=== PATIENT | female | born 1950 | race Two or more races ===

== ENCOUNTER 2024-11-01 08:07 | Inpatient (IN) | payer OTHER ==
[~2024-11-01] VITALS: Ht 152.4 cm; Wt 81.6 kg
[2024-11-01] VITALS (7 sets, daily range): BP systolic 168–229; BP diastolic 83–94; O2SAT 95–99
[2024-11-01] MEDS ORDERED: ELIQUIS5 MG PO (08:58)
[2024-11-01] MEDS ORDERED: JARDIANCE10 MG PO (08:59)
[2024-11-01] MEDS ORDERED: ACID REDUCER20 M1 PO (09:01)
[2024-11-01] MEDS ORDERED: ISOSORBIDE DINI30 MG PO (09:01)
[2024-11-01] MEDS ORDERED: HYDRALAZINE HCL50 MG PO (09:01)
[2024-11-01] MEDS ORDERED: LIPITOR40 M1 PO (09:02)
[2024-11-01] MEDS ORDERED: NORVASC10 MG PO (09:02)
[2024-11-01] MEDS ORDERED: PEPCID AC20 MG PO (09:03)
[2024-11-01] MEDS ORDERED: LOPRESSOR25 MG PO (09:04)
[2024-11-01] MEDS ORDERED: FUROsemide 20 MG/2 ML VIAL IV STA ×2 (09:32→15:43)
[2024-11-01] MEDS ORDERED: DILTIAZEM HCL 25 MG/5 ML VIAL IV ONE ×2 (09:42→09:45)
[2024-11-01] MEDS ORDERED: FUROsemide 20 MG/2 ML VIAL ONE ×2 (09:42→17:39)
[2024-11-01 09:56] LABS: HEMATOCRIT 37.5 % (36.0-45.00); HEMOGLOBIN 12.6 g/dL (12.0-15.00); MEAN CELL VOLUME 85.7 fL (80.00-100.00); MEAN CORPUSCULAR HEMOGLOBIN 28.8 pg (27.00-32.0); MEAN CORPUSCULAR HGB CONC 33.6 g/dl (32.0-36.0); PLATELET COUNT 319 K/uL (150-450); RED BLOOD COUNT 4.38 M/uL (4.00-6.00); RED CELL DISTRIBUTION WIDTH 15.3 % (11.5-14.5)
[2024-11-01 10:07] LABS: ABG PH 7.349 (7.35-7.45); ABG pCO2 38.2 mmHg (35-45); BASE EXCESS -4.5 mmol/l; BICARBONATE 20.6 mmol/l (23-25); SaO2 94.4 %; Tco2 21.8 mmol/l
[2024-11-01] MEDS ORDERED: LEVALBUTEROL HCL 1.25 MG/3 ML SOLUTION IH ONE (10:30)
[2024-11-01 10:43] LABS: o2 28 %
[2024-11-01 10:44] LABS: allen test SATISFACTORY; puncture site RADIAL RIGHT
[2024-11-01 10:58] LABS: URINE APPEARANCE Clear; URINE BILIRRUBIN Negative (NEGATIVE); URINE BLOOD Trace; URINE COLOR Yellow; URINE KETONE Negative (NEGATIVE); URINE LEUKOCYTE Negative; URINE NITRATE Negative; URINE UROBILINOGEN 0.2 E.U./dl
[2024-11-01 11:02] LABS: URINE EPITHELIAL CELLS 17.7 uL (0.0-38.8); URINE WBC 100.3 uL (0.0-23.2)
[2024-11-01] MEDS ORDERED: NITROGLYCERIN IN 5 % DEXTROSE 250 ML IV SCH (11:30)
[2024-11-01] MEDS ORDERED: KETOROLAC TROMETHAMINE 30 MG VIAL IV ONE (11:30)
[2024-11-01] MEDS ORDERED: NITROGLYCERIN IN 5 % DEXTROSE 50 MG/250 ML BOTTLE IV ONE (11:34)
[2024-11-01] MEDS ORDERED: KETOROLAC TROMETHAMINE 30 MG VIAL ONE (11:34)
[2024-11-01 11:38] LABS: URINE GLUCOSE 250 MG/DL (NEGATIVE); URINE PROTEIN >=1000 (NEGATIVE)
[2024-11-01 11:40] LABS: URINE EPITHELIAL CELLS 0-4 /HPF
[2024-11-01 12:06] LABS: ALBUMIN 2.6 gm/dL (3.4-5.0); BILIRUBIN TOTAL 0.64 mg/dL (0.3-1.2); BILIRUBIN,CONJUGATED 0.13 mg/dL (0.0-0.2); BILIRUBIN,UNCONJUGATED 0.51 mg/dL (0.0-0.6); CALCIUM 9.6 mg/dL (8.5-10.1); CREATININE SERUM 1.66 mg/dL (0.55-1.02); GFR 30.12; POTASSIUM 5.12 mEq/L (3.5-5.1)
[2024-11-01] MEDS ORDERED: ATORVASTATIN CALCIUM 40 MG TABLET PO SCH (19:35)
[2024-11-01] MEDS ORDERED: FAMOTIDINE/PF 20 MG in 0.9 % SODIUM CHLORIDE 8 ML IV PUSH SCH (19:37)
[2024-11-01] MEDS ORDERED: IPRATROPIUM BROMIDE 0.5 MG/2.5 ML AMPUL.NEB IH SCH (19:40)
[2024-11-01] MEDS ORDERED: AMIODARONE HCL 50 MG/ML AMPUL IV ONE (19:45)
[2024-11-01] MEDS ORDERED: INSULIN LISPRO 1,000 UNIT/10 ML UNITS SUBCUTANEO PRN (19:45)
[2024-11-01] MEDS ORDERED: DEXTROSE 50 % IN WATER 0.5 G/ML DISP.SYRIN IV PRN (19:45)
[2024-11-01] MEDS ORDERED: ASPIRIN 325 MG TABLET PO ONE (19:45)
[2024-11-01] MEDS ORDERED: TICAGRELOR 90 MG TABLET PO ONE ×3 (19:45→23:26)
[2024-11-01] MEDS ORDERED: MORPHINE SULFATE 2 MG/ML CARTRIDGE IV PRN (19:45)
[2024-11-01] MEDS ORDERED: ACETAMINOPHEN 500 MG GEL..CAP PO PRN (19:45)
[2024-11-01] MEDS ORDERED: ENOXAPARIN SODIUM 80 MG/0.8 ML SYRINGE SUBCUTANEO ONE (20:44)
[2024-11-01] MEDS ORDERED: AMIODARONE IN DEXTROSE,ISO-OSM 360 MG/200 ML IV.SOLN IV ONE (20:44)
[2024-11-01] MEDS ORDERED: FAMOTIDINE/PF 20 MG/2 ML VIAL ONE (20:44)
[2024-11-01] MEDS ORDERED: ENOXAPARIN SODIUM 80 MG/0.8 ML SYRINGE SUBCUTANEO SCH (21:00)
[2024-11-01] MEDS ORDERED: FUROsemide 20 MG/2 ML VIAL IV SCH (21:00)
[2024-11-01 22:31] LABS: PH,URINE 5.5 (5.0-8.0); URINE APPEARANCE Cloudy; URINE BILIRRUBIN Negative (NEGATIVE); URINE BLOOD Large; URINE COLOR Yellow; URINE KETONE Negative (NEGATIVE); URINE LEUKOCYTE Trace; URINE NITRATE Negative; URINE PROTEIN >=1000 (NEGATIVE); URINE UROBILINOGEN 0.2 E.U./dl
[2024-11-01 22:34] LABS: URINE BACTERIA 2980.4 uL (0.0-1933); URINE RBC 711.6 uL (0.0-20.8); URINE WBC 210.2 uL (0.0-23.2)
[2024-11-01] MEDS ORDERED: hydrALAZINE HCL 25 MG TABLET PO ONE (23:15)
[2024-11-01 23:51] LABS: URINE CAST > 21.83 uL (0.0-1.40); URINE GLUCOSE 250 MG/DL (NEGATIVE)
[2024-11-01 23:54] LABS: URINE YEAST NEGATIVE /hpf
[2024-11-02] VITALS (12 sets, daily range): BP systolic 137–226; BP diastolic 55–99; O2SAT 99–100
[2024-11-02] MEDS ORDERED: AMIODARONE IN DEXTROSE,ISO-OSM 360 MG/200 ML IV.SOLN IV ONE (03:46)
[2024-11-02] MEDS ORDERED: TICAGRELOR 90 MG TABLET PO SCH (05:00)
[2024-11-02] MEDS ORDERED: CLEVIDIPINE BUTYRATE 50 MG/100 ML VIAL IV SCH (08:15)
[2024-11-02] MEDS ORDERED: ACETAMINOPHEN 500 MG GEL..CAP PO ONE (08:19)
[2024-11-02] MEDS ORDERED: CLEVIDIPINE BUTYRATE 100 ML IV SCH (08:30)
[2024-11-02] MEDS ORDERED: ASPIRIN 81 MG TAB.CHEW PO SCH (09:00)
[2024-11-02] MEDS ORDERED: INSULIN LISPRO 1,000 UNIT/10 ML UNITS SUBCUTANEO ONE (09:44)
[2024-11-02] MEDS ORDERED: CHLORHEXIDINE GLUCONATE 120 ML BOTTLE TOP ONE (10:26)
[2024-11-02] MEDS ORDERED: TICAGRELOR 90 MG TABLET PO ONE (18:12)
[2024-11-02] MEDS ORDERED: METOPROLOL TARTRATE 25 MG TABLET PO SCH (22:11)
[2024-11-03] VITALS (20 sets, daily range): BP systolic 129–172; BP diastolic 60–99; O2SAT 95–100
[2024-11-03] MEDS ORDERED: IPRATROPIUM BROMIDE 0.5 MG/2.5 ML AMPUL.NEB IH ONE ×2 (00:13→09:26)
[2024-11-03] MEDS ORDERED: TICAGRELOR 90 MG TABLET PO ONE (06:19)
[2024-11-03 07:16] LABS: CALCIUM 9.2 mg/dL (8.5-10.1); CREATININE SERUM 2.82 mg/dL (0.55-1.02); GFR 16.34; POTASSIUM 4.41 mEq/L (3.5-5.1)
[2024-11-03 08:15] LABS: ALBUMIN 2.3 gm/dL (3.4-5.0); CALCIUM 9.3 mg/dL (8.5-10.1); CREATININE SERUM 2.84 mg/dL (0.55-1.02); GFR 16.21; PHOSPHOROUS 3.8 mg/dL (2.5-4.9); POTASSIUM 4.51 mEq/L (3.5-5.1); URIC ACID 6.6 mg/dL (2.5-7.5)
[2024-11-03] MEDS ORDERED: CEFTRIAXONE SODIUM 2,000 MG VIAL ONE (08:27)
[2024-11-03] MEDS ORDERED: CEFTRIAXONE SODIUM 2,000 MG VIAL IV SCH (09:00)
[2024-11-03] MEDS ORDERED: LOSARTAN POTASSIUM 50 MG TABLET PO SCH (09:00)
[2024-11-03] MEDS ORDERED: INSULIN LISPRO 1,000 UNIT/10 ML UNITS SUBCUTANEO ONE (15:50)
[2024-11-03] MEDS ORDERED: ONDANSETRON HCL 2 MG/ML VIAL ONE (21:37)
[2024-11-03] MEDS ORDERED: ONDANSETRON HCL 4 MG in 0.9 % SODIUM CHLORIDE 50 ML IV PRN (21:45)
[2024-11-04] VITALS (17 sets, daily range): BP systolic 131–176; BP diastolic 56–84; O2SAT 96–100
[2024-11-04] MEDS ORDERED: hydrALAZINE HCL 25 MG TABLET PO SCH (01:00)
[2024-11-04] MEDS ORDERED: METOPROLOL TARTRATE 25 MG TABLET PO SCH (01:00)
[2024-11-04] MEDS ORDERED: AMIODARONE IN DEXTROSE,ISO-OSM 360 MG/200 ML IV.SOLN IV ONE (02:02)
[2024-11-04] MEDS ORDERED: IPRATROPIUM BROMIDE 0.5 MG/2.5 ML AMPUL.NEB IH ONE (02:03)
[2024-11-04 08:31] LABS: URINE PROT QUANT 24HR 609.6 MG/DL
[2024-11-04 08:45] LABS: URINE PROT QUANT 24 HR 3657.6 MG/24HR (42-225)
[2024-11-04] MEDS ORDERED: FUROsemide 20 MG/2 ML VIAL IV SCH (09:00)
[2024-11-04] MEDS ORDERED: METOPROLOL TARTRATE 50 MG TABLET PO SCH (09:00)
[2024-11-04 09:01] LABS: CREATININE SERUM 2.82 mg/dL (0.6-1.0)
[2024-11-04] MEDS ORDERED: hydrALAZINE HCL 50 MG TABLET PO SCH (17:00)
[2024-11-05] VITALS (13 sets, daily range): BP systolic 103–192; BP diastolic 62–95; O2SAT 95–100
[2024-11-05] MEDS ORDERED: LOSARTAN POTASSIUM 100 MG TABLET PO SCH (09:00)
[2024-11-05] MEDS ORDERED: LOSARTAN POTASSIUM 50 MG TABLET PO SCH (09:00)
[2024-11-05] MEDS ORDERED: INSULIN LISPRO 1,000 UNIT/10 ML UNITS SUBCUTANEO PRN (14:00)
[2024-11-05] MEDS ORDERED: hydrALAZINE HCL 50 MG TABLET PO SCH (21:00)
[2024-11-05] MEDS ORDERED: ENALAPRILAT DIHYDRATE 1.25 MG/ML VIAL IV PRN (21:15)
[2024-11-06 03:59] VITALS: BP 138/75; O2SAT 96
[2024-11-06 07:04] VITALS: BP 182/97; O2SAT 97
[2024-11-06] MEDS ORDERED: hydrALAZINE HCL 50 MG TABLET PO SCH (09:00)
[2024-11-06] MEDS ORDERED: METOPROLOL TARTRATE 25 MG TABLET PO NR (09:30)
[2024-11-06] MEDS ORDERED: CHLORHEXIDINE GLUCONATE 120 ML BOTTLE TOP ONE (10:05)
[2024-11-06 11:25] LABS: ALBUMIN 2.1 gm/dL (3.4-5.0); PHOSPHOROUS 4.2 mg/dL (2.5-4.9); POTASSIUM 4.31 mEq/L (3.5-5.1)
[2024-11-06 11:51] LABS: GFR 8.95
[2024-11-06 11:53] LABS: CREATININE SERUM 4.75 mg/dL (0.55-1.02)
[2024-11-06 12:00] VITALS: BP 179/95; O2SAT 98
[2024-11-06] MEDS ORDERED: METOPROLOL TARTRATE 50 MG,METOPROLOL TARTRATE 25 MG PO SCH (17:00)
[2024-11-06 17:13] VITALS: BP 176/70; O2SAT 96
[2024-11-06] MEDS ORDERED: 0.9 % SODIUM CHLORIDE 1,000 ML IV SCH (17:30)
[2024-11-07 01:07] VITALS: BP 173/75; O2SAT 94
[2024-11-07 04:47] LABS: HEMATOCRIT 30.1 % (36.0-45.00); HEMOGLOBIN 10.4 g/dL (12.0-15.00); MEAN CORPUSCULAR HEMOGLOBIN 29.3 pg (27.00-32.0); MEAN CORPUSCULAR HGB CONC 34.4 g/dl (32.0-36.0); PLATELET COUNT 237 K/uL (150-450); RED BLOOD COUNT 3.54 M/uL (4.00-6.00); RED CELL DISTRIBUTION WIDTH 16.2 % (11.5-14.5)
[2024-11-07 05:34] LABS: CALCIUM 8.3 mg/dL (8.5-10.1); GFR 8.01; PHOSPHOROUS 4.3 mg/dL (2.5-4.9); POTASSIUM 3.92 mEq/L (3.5-5.1)
[2024-11-07 06:45] LABS: CREATININE SERUM 5.23 mg/dL (0.55-1.02)
[2024-11-07 08:27] VITALS: BP 178/63; O2SAT 94
[2024-11-07] MEDS ORDERED: ENOXAPARIN SODIUM 80 MG/0.8 ML SYRINGE SUBCUTANEO SCH (09:00)
[2024-11-07] MEDS ORDERED: FAMOtidine 20 MG TABLET PO SCH (09:00)
[2024-11-07] MEDS ORDERED: AMLODIPINE BESYLATE 5 MG TABLET PO SCH (09:16)
[2024-11-07] MEDS ORDERED: AMLODIPINE BESYLATE 10 MG TABLET PO SCH (09:50)
[2024-11-07 16:41] VITALS: BP 174/75; O2SAT 96
[2024-11-07] MEDS ORDERED: MORPHINE SULFATE 2 MG/ML CARTRIDGE IV ONE (19:30)
[2024-11-07] MEDS ORDERED: PANTOPRAZOLE SODIUM 40 MG/VIAL VIAL IV NR (19:30)
[2024-11-08 00:19] VITALS: BP 170/92; BP 201/79
[2024-11-08] MEDS ORDERED: METOPROLOL TARTRATE 50 MG TABLET PO SCH (01:00)
[2024-11-08 06:54] VITALS: BP 180/90
[2024-11-08 07:27] LABS: ALBUMIN 2.1 gm/dL (3.4-5.0); CALCIUM 8.6 mg/dL (8.5-10.1); GFR 8.44; PHOSPHOROUS 4.4 mg/dL (2.5-4.9)
[2024-11-08] MEDS ORDERED: METOPROLOL TARTRATE 100 MG TABLET PO SCH (09:00)
[2024-11-08] MEDS ORDERED: NIFEDIPINE 60 MG TAB.SA.OSM PO SCH (09:00)
[2024-11-08 09:06] VITALS: BP 180/90; O2SAT 99
[2024-11-08 11:48] VITALS: BP 160/75
[2024-11-08 17:09] LABS: HEMATOCRIT 32.4 % (36.0-45.00); HEMOGLOBIN 10.7 g/dL (12.0-15.00); MEAN CELL VOLUME 86.7 fL (80.00-100.00); MEAN CORPUSCULAR HEMOGLOBIN 28.7 pg (27.00-32.0); MEAN CORPUSCULAR HGB CONC 33.1 g/dl (32.0-36.0); PLATELET COUNT 285 K/uL (150-450); RED BLOOD COUNT 3.74 M/uL (4.00-6.00); RED CELL DISTRIBUTION WIDTH 15.6 % (11.5-14.5)
[2024-11-08 17:33] VITALS: BP 150/80
[2024-11-08 17:45] LABS: ALBUMIN 2.4 gm/dL (3.4-5.0); CALCIUM 8.6 mg/dL (8.5-10.1); GFR 8.72; PHOSPHOROUS 4.6 mg/dL (2.5-4.9); POTASSIUM 3.79 mEq/L (3.5-5.1)
[2024-11-08 18:00] LABS: CREATININE SERUM 4.86 mg/dL (0.55-1.02)
[2024-11-09 00:31] VITALS: BP 155/67; O2SAT 96
[2024-11-09 05:38] LABS: CALCIUM 8.1 mg/dL (8.5-10.1); GFR 8.89; POTASSIUM 3.75 mEq/L (3.5-5.1)
[2024-11-09 06:42] LABS: CREATININE SERUM 4.78 mg/dL (0.55-1.02)
[2024-11-09] MEDS ORDERED: NIFEDIPINE 90 MG TAB.SA.OSM PO SCH (09:00)
[2024-11-09] MEDS ORDERED: PANTOPRAZOLE SODIUM 40 MG/VIAL VIAL IV SCH (09:00)
[2024-11-09 09:06] VITALS: BP 123/59; O2SAT 98
[2024-11-09 17:13] VITALS: BP 125/50
[2024-11-09] MEDS ORDERED: ACETAMINOPHEN 500 MG GEL..CAP PO PRN (19:45)
[2024-11-10 00:36] VITALS: BP 141/82
[2024-11-10 06:01] LABS: ALBUMIN 2.2 gm/dL (3.4-5.0); CALCIUM 8.1 mg/dL (8.5-10.1); GFR 7.62; PHOSPHOROUS 5.1 mg/dL (2.5-4.9); POTASSIUM 4.13 mEq/L (3.5-5.1)
[2024-11-10 06:41] LABS: CREATININE SERUM 5.46 mg/dL (0.55-1.02)
[2024-11-10 09:15] VITALS: BP 146/65; O2SAT 100
[2024-11-10] MEDS ORDERED: SODIUM CHLORIDE 0.45 % 1,000 ML IV SCH (13:00)
[2024-11-10 16:54] VITALS: BP 135/61; O2SAT 100
[2024-11-11 02:10] VITALS: BP 163/67
[2024-11-11 07:55] LABS: CALCIUM 8.4 mg/dL (8.5-10.1); GFR 7.19; POTASSIUM 4.68 mEq/L (3.5-5.1)
[2024-11-11] MEDS ORDERED: INSULIN NPH HUM/REG INSULIN HM 1,000 UNIT/10 ML UNITS SUBCUTANEO SCH (08:00)
[2024-11-11 08:15] VITALS: BP 175/56
[2024-11-11 08:18] LABS: CREATININE SERUM 5.74 mg/dL (0.55-1.02)
[2024-11-11] MEDS ORDERED: BISMUTH SUBSALICYLATE 524 MG/30 ML BLIST.PACK PO PRN (10:30)
[2024-11-11] MEDS ORDERED: CITRIC ACID/SODIUM CITRATE 30 ML BLIST.PACK PO SCH (13:00)
[2024-11-11 17:31] VITALS: BP 133/59; O2SAT 98
[2024-11-11] MEDS ORDERED: VANCOMYCIN HCL 125 MG/7.5 ML BLIST.PACK PO SCH (18:00)
[2024-11-12 02:00] VITALS: BP 131/51
[2024-11-12 07:59] VITALS: BP 138/56
[2024-11-12 08:09] LABS: CALCIUM 8.1 mg/dL (8.5-10.1); GFR 7.07; POTASSIUM 4.04 mEq/L (3.5-5.1)
[2024-11-12 08:34] LABS: CREATININE SERUM 5.83 mg/dL (0.55-1.02)
[2024-11-12 16:46] VITALS: BP 136/65; O2SAT 97
[2024-11-13 02:09] VITALS: BP 163/61
[2024-11-13 07:39] LABS: CALCIUM 8.2 mg/dL (8.5-10.1); GFR 7.54; POTASSIUM 4.13 mEq/L (3.5-5.1)
[2024-11-13 08:22] LABS: CREATININE SERUM 5.51 mg/dL (0.55-1.02)
[2024-11-13 08:55] VITALS: BP 129/63
[2024-11-13 08:55] LABS: HEMATOCRIT 26.9 % (36.0-45.00); HEMOGLOBIN 9.1 g/dL (12.0-15.00); MEAN CELL VOLUME 86.5 fL (80.00-100.00); MEAN CORPUSCULAR HEMOGLOBIN 29.3 pg (27.00-32.0); MEAN CORPUSCULAR HGB CONC 33.9 g/dl (32.0-36.0); PLATELET COUNT 345 K/uL (150-450); RED BLOOD COUNT 3.11 M/uL (4.00-6.00); RED CELL DISTRIBUTION WIDTH 15.5 % (11.5-14.5)
[2024-11-13] MEDS ORDERED: HEPARIN SODIUM,PORCINE 1,000 UNITS/ML VIAL SPEPROC ONE (14:30)
[2024-11-13] MEDS ORDERED: HEPARIN SODIUM,PORCINE 1,000 UNITS/ML VIAL IV SCH (14:30)
[2024-11-13] MEDS ORDERED: hydrALAZINE HCL 50 MG TABLET PO SCH (17:00)
[2024-11-13] MEDS ORDERED: METRONIDAZOLE/SODIUM CHLORIDE 100 ML IV SCH (17:03)
[2024-11-13 17:30] VITALS: BP 147/63
[2024-11-13] MEDS ORDERED: VANCOMYCIN HCL PO SCH (18:00)
[2024-11-13 18:55] LABS: INR 1.03; PARTIAL THROMBOPLASTIN TIME 31.9 SECONDS (22.0-34.0); PROTHROMBIN TIME 11.2 SECONDS (9.0-11.5)
[2024-11-14 02:22] VITALS: BP 137/66; O2SAT 97
[2024-11-14 06:58] LABS: CALCIUM 7.9 mg/dL (8.5-10.1); GFR 7.94; POTASSIUM 3.83 mEq/L (3.5-5.1)
[2024-11-14 08:00] VITALS: BP 161/69
[2024-11-14 08:16] LABS: CREATININE SERUM 5.27 mg/dL (0.55-1.02)
[2024-11-14] MEDS ORDERED: IPRATROPIUM BROMIDE 0.5 MG/2.5 ML AMPUL.NEB IH NR (10:00)
[2024-11-14 10:10] LABS: ABG PH 7.358 (7.35-7.45); ABG pCO2 33.1 mmHg (35-45); BASE EXCESS -6.2 mmol/l; BICARBONATE 18.2 mmol/l (23-25); SaO2 93.4 %; Tco2 19.2 mmol/l
[2024-11-14] MEDS ORDERED: FUROsemide 40 MG/4 ML VIAL IV STA (11:08)
[2024-11-14 11:30] LABS: allen test SATISFACTORY; o2 21 %; puncture site RADIAL RIGHT
[2024-11-14] MEDS ORDERED: IPRATROPIUM BROMIDE 0.5 MG/2.5 ML AMPUL.NEB IH SCH (13:00)
[2024-11-14] MEDS ORDERED: HEPARIN SODIUM,PORCINE 5,000 UNITS/ML VIAL ONE (16:20)
[2024-11-14 17:49] VITALS: BP 151/62
[2024-11-15 01:00] VITALS: BP 151/64
[2024-11-15 08:38] VITALS: BP 145/62
[2024-11-15 13:43] LABS: CALCIUM 8.4 mg/dL (8.5-10.1); CREATININE SERUM 3.35 mg/dL (0.55-1.02); GFR 13.39; POTASSIUM 3.61 mEq/L (3.5-5.1)
[2024-11-15 17:28] VITALS: BP 118/61; O2SAT 96
[2024-11-16 02:42] VITALS: BP 143/64
[2024-11-16 06:54] LABS: CALCIUM 8.1 mg/dL (8.5-10.1); CREATININE SERUM 3.31 mg/dL (0.55-1.02); GFR 13.58; POTASSIUM 3.73 mEq/L (3.5-5.1)
[2024-11-16 07:02] LABS: MEAN CELL VOLUME 86.3 fL (80.00-100.00); PLATELET COUNT 381 K/uL (150-450); RED BLOOD COUNT 3.01 M/uL (4.00-6.00); RED CELL DISTRIBUTION WIDTH 15.2 % (11.5-14.5)
[2024-11-16 07:13] LABS: HEMOGLOBIN 8.8 g/dL (12.0-15.00); MEAN CORPUSCULAR HEMOGLOBIN 29.2 pg (27.00-32.0)
[2024-11-16 09:30] VITALS: BP 140/73; O2SAT 98
[2024-11-16 17:42] VITALS: BP 134/62
[2024-11-16] MEDS ORDERED: HEPARIN SODIUM,PORCINE 5,000 UNITS/ML VIAL IJ NR (18:00)
[2024-11-16] MEDS ORDERED: EPOETIN ALFA-EPBX 10,000 UNIT/ML VIAL (Retacrit) SUBCUTANEO NR (18:30)
[2024-11-16] MEDS ORDERED: SOD FERRIC GLUC COMPLX/SUCROSE 62.5 MG/5 ML AMPUL IV NR (18:30)
[2024-11-17 02:42] VITALS: BP 143/79
[2024-11-17 06:43] LABS: CALCIUM 8.2 mg/dL (8.5-10.1); CREATININE SERUM 2.4 mg/dL (0.55-1.02); GFR 19.68; POTASSIUM 3.62 mEq/L (3.5-5.1)
[2024-11-17 09:46] VITALS: BP 173/79; O2SAT 98
[2024-11-17 17:09] VITALS: BP 129/58
[2024-11-18 02:40] VITALS: BP 128/57
[2024-11-18 07:35] LABS: HEMATOCRIT 24.3 % (36.0-45.00); MEAN CELL VOLUME 86.2 fL (80.00-100.00); MEAN CORPUSCULAR HGB CONC 35.3 g/dl (32.0-36.0); PLATELET COUNT 334 K/uL (150-450); RED BLOOD COUNT 2.82 M/uL (4.00-6.00); RED CELL DISTRIBUTION WIDTH 15.7 % (11.5-14.5)
[2024-11-18 07:42] LABS: HEMOGLOBIN 8.6 g/dL (12.0-15.00); MEAN CORPUSCULAR HEMOGLOBIN 30.4 pg (27.00-32.0)
[2024-11-18 07:54] LABS: CALCIUM 8.4 mg/dL (8.5-10.1); CREATININE SERUM 3.39 mg/dL (0.55-1.02); GFR 13.21; POTASSIUM 3.73 mEq/L (3.5-5.1)
[2024-11-18 08:43] VITALS: BP 152/73
[2024-11-18] MEDS ORDERED: EPOETIN ALFA-EPBX 10,000 UNIT/ML VIAL (Retacrit) SUBCUTANEO SCH (09:00)
[2024-11-18] MEDS ORDERED: SOD FERRIC GLUC COMPLX/SUCROSE 62.5 MG/5 ML AMPUL IV SCH (09:00)
[2024-11-18] MEDS ORDERED: HYDROCORTISONE 2.5% 20 GM TUBE RECTAL SCH (17:00)
[2024-11-18 17:46] VITALS: BP 142/52
[2024-11-18] MEDS ORDERED: HEPARIN SODIUM,PORCINE 5,000 UNITS/ML VIAL ONE (18:56)
[2024-11-19 03:40] VITALS: BP 150/63
[2024-11-19 05:41] LABS: ALBUMIN 2.1 gm/dL (3.4-5.0); CALCIUM 8.4 mg/dL (8.5-10.1); CREATININE SERUM 2.35 mg/dL (0.55-1.02); GFR 20.16; PHOSPHOROUS 2.5 mg/dL (2.5-4.9); POTASSIUM 3.53 mEq/L (3.5-5.1)
[2024-11-19 09:12] VITALS: BP 148/78
[2024-11-19 19:18] VITALS: BP 115/68
[2024-11-20 03:21] VITALS: BP 137/65
[2024-11-20 07:49] LABS: HEMATOCRIT 24.5 % (36.0-45.00); MEAN CELL VOLUME 87.1 fL (80.00-100.00); MEAN CORPUSCULAR HGB CONC 34.6 g/dl (32.0-36.0); PLATELET COUNT 291 K/uL (150-450); RED BLOOD COUNT 2.81 M/uL (4.00-6.00); RED CELL DISTRIBUTION WIDTH 15.9 % (11.5-14.5)
[2024-11-20 07:56] LABS: ALBUMIN 2.1 gm/dL (3.4-5.0); CALCIUM 8.5 mg/dL (8.5-10.1); CREATININE SERUM 3.18 mg/dL (0.55-1.02); GFR 14.22; POTASSIUM 3.57 mEq/L (3.5-5.1)
[2024-11-20 08:16] LABS: HEMOGLOBIN 8.5 g/dL (12.0-15.00); MEAN CORPUSCULAR HEMOGLOBIN 30.2 pg (27.00-32.0)
[2024-11-20 09:04] VITALS: BP 134/51; O2SAT 98
[2024-11-20 16:59] VITALS: BP 123/83
[2024-11-21 01:00] VITALS: BP 178/64
[2024-11-21 07:24] LABS: URINE PROT QUANT 24HR 367.3 MG/DL
[2024-11-21 07:26] LABS: URINE PROT QUANT 24 HR 2203.8 MG/24HR (42-225)
[2024-11-21 07:28] LABS: CREATINE CLEARANCE 16.5 ML/MIN (97-137); CREATININE SERUM 3.18 mg/dL (0.6-1.0)
[2024-11-21 09:08] VITALS: BP 142/75; O2SAT 100
[2024-11-21] MEDS ORDERED: VANCOMYCIN HCL 125 MG CAPSULE PO SCH (12:00)
[2024-11-21 15:38] LABS: CALCIUM 8.6 mg/dL (8.5-10.1); CREATININE SERUM 3.32 mg/dL (0.55-1.02); GFR 13.53; POTASSIUM 3.81 mEq/L (3.5-5.1)
[2024-11-21 18:08] VITALS: BP 160/65
[2024-11-21] MEDS ORDERED: HEPARIN SODIUM,PORCINE 5,000 UNITS/ML VIAL IV NR (18:30)
[2024-11-22 01:38] VITALS: BP 150/68
[2024-11-22 09:27] VITALS: BP 150/63
[2024-11-22 13:31] LABS: HEMATOCRIT 28.7 % (36.0-45.00); HEMOGLOBIN 9.5 g/dL (12.0-15.00); MEAN CELL VOLUME 88.3 fL (80.00-100.00); MEAN CORPUSCULAR HEMOGLOBIN 29.3 pg (27.00-32.0); MEAN CORPUSCULAR HGB CONC 33.1 g/dl (32.0-36.0); PLATELET COUNT 291 K/uL (150-450); RED BLOOD COUNT 3.24 M/uL (4.00-6.00); RED CELL DISTRIBUTION WIDTH 16.2 % (11.5-14.5)
[2024-11-22 14:10] LABS: ALBUMIN 2.5 gm/dL (3.4-5.0); CALCIUM 8.7 mg/dL (8.5-10.1); CREATININE SERUM 2.31 mg/dL (0.55-1.02); GFR 20.57; PHOSPHOROUS 2.3 mg/dL (2.5-4.9); POTASSIUM 4.1 mEq/L (3.5-5.1)
[2024-11-22 17:30] VITALS: BP 149/71; O2SAT 98
[2024-11-23 03:09] VITALS: BP 115/56
[2024-11-23 07:14] LABS: CALCIUM 8.5 mg/dL (8.5-10.1); CREATININE SERUM 2.66 mg/dL (0.55-1.02); GFR 17.48; POTASSIUM 4.04 mEq/L (3.5-5.1)
[2024-11-23 08:45] VITALS: BP 133/49
[2024-11-23 18:28] VITALS: BP 109/57
[2024-11-24 02:52] VITALS: BP 134/61; O2SAT 98
[2024-11-24 05:36] LABS: HEMATOCRIT 24.9 % (36.0-45.00); MEAN CELL VOLUME 88.5 fL (80.00-100.00); MEAN CORPUSCULAR HEMOGLOBIN 30.2 pg (27.00-32.0); MEAN CORPUSCULAR HGB CONC 34.1 g/dl (32.0-36.0); PLATELET COUNT 263 K/uL (150-450); RED BLOOD COUNT 2.81 M/uL (4.00-6.00); RED CELL DISTRIBUTION WIDTH 16.6 % (11.5-14.5)
[2024-11-24 05:40] LABS: HEMOGLOBIN 8.5 g/dL (12.0-15.00)
[2024-11-24 05:54] LABS: CALCIUM 8.4 mg/dL (8.5-10.1); CREATININE SERUM 2.73 mg/dL (0.55-1.02); GFR 16.96; POTASSIUM 3.98 mEq/L (3.5-5.1)
[2024-11-24 08:05] LABS: hav igm Negative (Negative); hcv Non Reactive (Non Reactive); hep b c Negative (Negative); hep b s ag Negative (Negative)
[2024-11-24 09:15] VITALS: BP 135/61; O2SAT 95
[2024-11-24 13:14] LABS: ALBUMIN 2.5 gm/dL (3.4-5.0); CALCIUM 8.7 mg/dL (8.5-10.1); CREATININE SERUM 2.6 mg/dL (0.55-1.02); GFR 17.94; PHOSPHOROUS 3.5 mg/dL (2.5-4.9); POTASSIUM 4.02 mEq/L (3.5-5.1)
[2024-11-24 17:33] VITALS: BP 135/60
[2024-11-24] MEDS ORDERED: AMINO ACIDS/PROTEIN HYDROLYS 30 ML BLIST.PACK PO SCH (19:53)
[2024-11-25 01:50] VITALS: BP 128/68; O2SAT 97
[2024-11-25] MEDS ORDERED: NORVASC10 MG PO (08:22)
[2024-11-25] MEDS ORDERED: HYDRALAZINE HCL50 MG PO (08:22)
[2024-11-25] MEDS ORDERED: ISOSORBIDE DINI30 MG PO (08:22)
[2024-11-25] MEDS ORDERED: LIPITOR40 M1 PO (08:22)
[2024-11-25 08:31] LABS: HEMATOCRIT 26.3 % (36.0-45.00); MEAN CELL VOLUME 88.8 fL (80.00-100.00); MEAN CORPUSCULAR HGB CONC 34.1 g/dl (32.0-36.0); PLATELET COUNT 272 K/uL (150-450); RED BLOOD COUNT 2.96 M/uL (4.00-6.00); RED CELL DISTRIBUTION WIDTH 17.2 % (11.5-14.5)
[2024-11-25 08:39] LABS: MEAN CORPUSCULAR HEMOGLOBIN 30.4 pg (27.00-32.0)
[2024-11-25 09:01] LABS: CALCIUM 8.7 mg/dL (8.5-10.1); CREATININE SERUM 2.54 mg/dL (0.55-1.02); GFR 18.43; POTASSIUM 4.32 mEq/L (3.5-5.1)
[2024-11-25 09:36] VITALS: BP 138/68; O2SAT 95
== END 2024-11-25 10:41 | disposition home or self-care (01) | DRG 309 ==
LOC: ER 08:10 → ICU-2 20:23 → ICU 11-05 20:26 → MEDJ 11-06 13:33 → MEDI 11-06 15:16 → MEDJ 11-13 10:37
PROVIDERS: General Practice; Internal Medicine; Specialist/Technologist, Other Nephrology; ADMIT Student in an Organized Health Care Education/Training Program; ATTEND Student in an Organized Health Care Education/Training Program
PROC: B24BZZZ Ultrasonography of Heart with Aorta (ICD-10-PCS; 2024-11-01)
PROC: 4A12X4Z Monitoring of Cardiac Electrical Activity, External Approach (ICD-10-PCS; 2024-11-06)
PROC: BT43ZZZ Ultrasonography of Bilateral Kidneys (ICD-10-PCS; 2024-11-07)
PROC: 8E0ZXY6 Isolation (ICD-10-PCS; 2024-11-11)
PROC: 05HM33Z Insertion of Infusion Device into Right Internal Jugular Vein, Percutaneous Approach (ICD-10-PCS; principal; 2024-11-13)
PROC: 5A1D70Z Performance of Urinary Filtration, Intermittent, Less than 6 Hours Per Day (ICD-10-PCS; 2024-11-14)
PROC: 5A1D70Z Performance of Urinary Filtration, Intermittent, Less than 6 Hours Per Day (ICD-10-PCS; 2024-11-16)
PROC: B54PZZZ Ultrasonography of Bilateral Upper Extremity Veins (ICD-10-PCS; 2024-11-22)
DX: I48.20 Chronic atrial fibrillation, unspecified (principal); A04.72 Enterocolitis due to Clostridium difficile, not specified as recurrent; I13.0 Hypertensive heart and chronic kidney disease with heart failure and stage 1 through stage 4 chronic kidney disease, or unspecified chronic kidney disease; N17.9 Acute kidney failure, unspecified; I16.9 Hypertensive crisis, unspecified; I24.9 Acute ischemic heart disease, unspecified; E11.65 Type 2 diabetes mellitus with hyperglycemia; E86.0 Dehydration; Z79.4 Long term (current) use of insulin; E11.22 Type 2 diabetes mellitus with diabetic chronic kidney disease; N18.30 Chronic kidney disease, stage 3 unspecified; I50.9 Heart failure, unspecified; I25.10 Atherosclerotic heart disease of native coronary artery without angina pectoris; R09.02 Hypoxemia; Z99.2 Dependence on renal dialysis